=== PATIENT | female | born 1975 | race Caucasian/White ===

== ENCOUNTER 2022-12-10 17:11 | Emergency (ER) | payer BC ==
--- NOTE | 2022-12-10 17:40 | NUR ---
Attempted to triage, pt not found in ER waiting room, main lobby or outside ER.
== END 2022-12-10 18:32 | disposition left against medical advice (07) ==
LOC: ER 17:11
DX: Z53.21 Procedure and treatment not carried out due to patient leaving prior to being seen by health care provider (principal)